=== PATIENT | male | born 1950 | race African-American/Black ===

== ENCOUNTER 2018-08-09 12:31 | Inpatient (IN) | payer OTHER ==
[~2018-08-09] VITALS: Ht 177.8 cm; Wt 77.1 kg
--- NOTE | ~2018-08-09 | EEG ---
[facility] [place] [address] ELECTROENCEPHALOGRAM Name: ABIEL ACOSTA Room #: 462-P ADM IN M.R.#: [id number] Admission: 08/09/18 Attend Phys: Clint Girard MD Discharge: Date of : 48 Report #: [id number] THIS REPORT FOR: //name// CC: Clint MARTIN unknown DATE OF SERVICE: 08/10/2018 This patient is being evaluated for seizure disorder. EEG was done by placing the electrodes by standard 10-20 system of electrode placement. Both referential and sequential montages were used for recording. Background activity in this patient's EEG is about 8-9 Hz and 30 microvolts. The patient became drowsy that is associated with bilateral slowing and vertex sharp waves. Photic stimulation was unremarkable. Throughout the record, no active epileptiform activity was noticed. IMPRESSION: This patient's EEG is moderately slow. There is a nonspecific finding, which can occur with drowsiness, dementia, effect of psychotropic medication. No active epileptiform activity was noticed during this record. Thank you very much for this referral. By: [id number] Edis Albarran MD /nt
--- NOTE | ~2018-08-09 | HC ---
[facility] [place] [address] CONSULTATION Name: ABIEL ACOSTA Room #: 462-P ADM IN M.R.#: [id number] Admission: 08/09/18 Attend Phys: Clint Girard MD Discharge: Date of : 48 Report #: [id number] THIS REPORT FOR: //name// CC: Clint Girard [facility] unknown DATE OF SERVICE: 08/10/2018 HISTORY OF PRESENT ILLNESS: This is a 68-year-old male patient whom I tried to see last night and again this morning. The patient is very uncooperative. He does not answer my questions and just asked me a question instead. I tried to explain to him last night and this morning that it is very important that he cooperates with me, so that I can give him some guidance about his treatment. He gives a history that he has a seizure disorder. His seizure disorder started sometime early last year. He said he had a seizure and they called ambulance. I asked him did he to go to the hospital and instead of answering he told me what do you think I did. After lot of talking to him, it looks like he was admitted to [facility]. He will not give me any history in that regard further. He said he was put on medication. He will not give answers to what testing they have. He said he ran out of his medication about 2 days ago. He does not know what medication he was on. In the hospital, he is on Keppra. He has not had any further seizure, and he has been drowsy. He was smoking marijuana when he had these seizures as I understand from the history, but he will not give me any history in that regard. He will not tell me if he drinks alcohol and how much alcohol he drinks. REVIEW OF SYSTEMS: I carried out the 14-point review of systems. He is very uncooperative. The history he provides me is different than the history he provided to Emergency Room, and in fact, most of the time, he kept arguing rather than giving straight answers. I attempted 14-point review of systems, but he did not provide good answers to any of those. PAST MEDICAL HISTORY: Positive for seizure, but further history is not clear. FAMILY HISTORY: He will not give. SOCIAL HISTORY: The best I can tell from him, he does not drink alcohol on a regular basis. PHYSICAL EXAMINATION: Very limited. When I tried to do the visual field examination, instead of counting the fingers, he will say there are 8 fingers. He just did not want to cooperate. He does not like the IV. The only thing I can say is that he moves all 4 extremities. He did let me listen to his heart and lungs, and they look unremarkable. [facility] [address] [place] [address] CONSULTATION Name: ABIEL ACOSTA Room #: 462-P ADM IN M.R.#: [id number] Admission: 08/09/18 Attend Phys: Clint Girard MD Discharge: Date of : 48 Report #: [id number] IMPRESSION: Very difficult to form in this patient because he is so uncooperative. I suspect he has a seizure disorder. RECOMMENDATIONS: Presently, he is on Keppra that is the relatively high dose of Keppra, but if he was on that, we can continue that. His creatinine is 4.1 that needs to be addressed, and his dose may have to be readjusted. I will get an EEG done in this patient and discuss the patient with Dr. Girard. By: [id number] [id number] Edis Albarran MD /nt
[2018-08-09 12:33] VITALS: BP 176/85
[2018-08-09 13:06] LABS: ABSOLUTE NEUTROPHILS 3.4 thou/uL (1.4-8.2); BASOPHILS 1.1 % (0.0-2.0); EOSINOPHILS 2.2 % (0.0-3.0); HEMATOCRIT 35.4 % (42.0-52.0); HEMOGLOBIN 12.3 gm/dL (14.0-18.0); LYMPHOCYTES 13.7 % (24.0-44.0); MCH 32.3 pg (26.0-34.0); MCHC 34.6 g/dL (28.0-37.0); MCV 93.2 fL (80.0-100.0); MONOCYTES 2.7 % (1.0-8.0); PLATELET COUNT 166 thou/uL (150-400); POLYS 80.3 % (36.0-66.0); RDW 13.5 % (10.5-14.5); WBC 4.2 thou/uL (4.0-11.0)
[2018-08-09 13:16] LABS: ANION GAP 14 mmol/L (7-16); BUN 40 mg/dL (7-18); CALCIUM 8.7 mg/dL (8.5-10.1); CHLORIDE 105 mmol/L (98-107); CO2 21 mmol/L (21-32); CREATININE 4.2 mg/dL (0.7-1.3); GLUCOSE 146 mg/dL (74-106); POTASSIUM 4.4 mmol/L (3.5-5.1); SODIUM 140 mmol/L (136-145)
[2018-08-09 13:18] LABS: URINE BILIRUBIN NEGATIVE (Negative); URINE BLOOD 1+ (Negative); URINE CLARITY CLEAR; URINE COLOR YELLOW; URINE GLUCOSE-RANDOM* TRACE (Negative); URINE KETONES NEGATIVE (Negative); URINE LEUKOCYTES-REFLEX NEGATIVE (Negative); URINE NITRITE-REFLEX NEGATIVE (Negative); URINE PROTEIN (DIPSTICK) 2+ (Negative); URINE UROBILINOGEN 0.2 E.U./dl (0.2-1.0)
[2018-08-09 13:23] LABS: AMP/METHAMP Negative (Negative); BARBITURATES Negative (Negative); BENZODIAZEPINES Negative (Negative); COCAINE Negative (Negative); METHADONE Negative (Negative); OPIATES Negative (Negative); PCP Negative (Negative)
[2018-08-09 13:25] LABS: ALBUMIN 3.9 g/dL (3.4-5.0); SALICYLATE 6.2 mg/dL (2.8-20.0); SGOT 20 U/L (15-37); SGPT 22 U/L (30-65); TOTAL BILIRUBIN 0.5 mg/dL (<0.1-1.0); TOTAL PROTEIN 7.8 g/dL (6.4-8.2); TROPONIN-I <0.06 ng/mL (<0.06)
[2018-08-09 13:30] LABS: BACTERIA-REFLEX None Seen /HPF (None Seen); CRYSTALS None Seen /LPF (None Seen); HYALINE CASTS 0-3 Few /LPF (None Seen); SQUAMOUS >10 Many /LPF (0-3); URINE RBC 3-10 Few /HPF (0-2); URINE WBC-REFLEX 0-5 Rare /HPF (0-5)
[2018-08-09] MEDS ORDERED: HYDRALAZINE 2525 MG PO (15:13)
[2018-08-09 15:33] VITALS: BP 165/88
[2018-08-09 15:54] VITALS: BP 165/88
[2018-08-09 16:15] VITALS: BP 170/88
--- NOTE | 2018-08-09 16:33 | EKG ---
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1950 Requested By: Christine Evans Order Number: [id number] MD: Marcos Machado Measurements Intervals Jack Rate: 98 P: 72 TN: 143 QRS: 84 QRSD: 88 T: 60 QT: 352 QTc: 450 Interpretive Statements Sinus rhythm Probable left atrial enlargement Borderline right axis deviation Probable left ventricular hypertrophy Baseline wander in lead(s) V5 No previous ECG available for comparison Electronically Signed On 08-09-2018 16:33:41 ROLLER VARNISHER by Marcos Machado [email or web address] <ELECTRONICALLY SIGNED> By: Marcos Machado MD 08/09/18 1633 1241 124 Marcos Machado MD /JOANNA
--- NOTE | 2018-08-09 16:46 | NUR ---
Received pt from the ER, pt is very lethargic and can be combative. Hygiene is very poor and would not respoond to most questions. IV fluids started.
[2018-08-09 23:09] VITALS: BP 169/82
[2018-08-10 04:07] VITALS: BP 155/79
[2018-08-10 06:10] LABS: CALCIUM 8.2 mg/dL (8.5-10.1); CREATININE 4.1 mg/dL (0.7-1.3); POTASSIUM 4.4 mmol/L (3.5-5.1)
--- NOTE | 2018-08-10 06:28 | NUR ---
SLEPT THRU EVENING. WOKE UP AT 0330. GAVE PATIENT SHOWER DUE BEING/FEELING SWEATY. ASSIST X 1 TO BATHROOM. STEADY GAIT WITH ONE EPISODE OF WEAKNESS/STUMBLING TO THE LEFT. HAS BEEN COMPLIANT WITH SAFETY INSTRUCTIONS. BED ALARM ON. ROOM NEAR NURSES STATION. DENIES PAIN.
[2018-08-10 08:20] VITALS: BP 147/72
--- NOTE | 2018-08-10 13:14 | NUR ---
cm visited with pt at bedside, pt is a & 3, pleasant and able to make his needs. intro cm, dcp, home health, post acute. pt reported " live alone, 10 stairs. 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 go to [facility] clinic for neuro and kidneys. friends and family can transport me home. get medication at [facility] [address]. have not taken medication on 3 days, been out, maybe that is what caused this. i am feeling better and ready to leave."/rosalino. will cont following as needed for dc needs. no anticipated needs. dcp home
[2018-08-10 19:34] VITALS: BP 138/70
--- NOTE | 2018-08-10 20:08 | NUR ---
Pt bp was elevated, new order for bp medication given, bp back with in baseline. Pt is less obnoxious today, and is able to follow simple instruction but would refuse care at times. No verbilization of any issues or concerns.
[2018-08-11 04:16] VITALS: BP 148/71
--- NOTE | 2018-08-11 06:22 | NUR ---
Assumed care at 1845. Pt resting in bed. No issues with BP. No episode of seizure. Pt has been some what cooperative with treatment. No identified needs at the moment. Call light within reach. Will continue to monitor.
[2018-08-11 08:00] VITALS: BP 158/81
[2018-08-11 14:05] VITALS: BP 167/65
[2018-08-11 19:25] VITALS: BP 183/92
[2018-08-12] VITALS (8 sets, daily range): BP systolic 154–179; BP diastolic 78–101
--- NOTE | 2018-08-12 04:04 | NUR ---
Pt. rested quietly at intervals during the night when checked on during frequent rounds. No seizure activity noted. Assisted to the toilet with stand by. Bed alarm is on.
[2018-08-12 05:26] LABS: HEMATOCRIT 26.9 % (42.0-52.0); MCH 32.5 pg (26.0-34.0); MCHC 34.8 g/dL (28.0-37.0); MCV 93.5 fL (80.0-100.0); RBC 2.88 mil/uL (4.50-6.00); RDW 13.5 % (10.5-14.5); WBC 3.9 thou/uL (4.0-11.0)
[2018-08-12 05:44] LABS: CALCIUM 8.1 mg/dL (8.5-10.1); CREATININE 3.3 mg/dL (0.7-1.3); POTASSIUM 5.1 mmol/L (3.5-5.1)
[2018-08-12 05:45] LABS: HEMOGLOBIN 9.4 gm/dL (14.0-18.0)
--- NOTE | 2018-08-12 16:39 | NUR ---
PATIENT TRANSFERRED FROM [facility], REPORT RECEIVED FROM ROM/RN. PATIENT UP WITH SBA WITH USE OF CANE. PATIENT HAS RIGHT CHEST POC IN PLACE, WITH NS AT 100CC/HR. BLOOD SUGAR MONITORING ORDERED, LOW DOSE S/S GIVEN PER BLOOD SUGAR. ROOM AIR, CPAP AT NIGHT. ALERT AND ORIENTED X 4. WILL CONTINUE TO MONITOR.
--- NOTE | 2018-08-12 17:05 | NUR ---
PATIENT TRANSFERRED FROM [facility], REPORT FROM EZIO/AFSHAN. PATIENT ALERT AND ORIENTED X 4. UP WITH SBA. PATIENT DENIES PAIN UPON ARRIVAL TO THE UNIT. SEIZURE PRECAUTIONS IMPLEMENTED. PATIENT HAS LEFT AC IV IN PLACE WITH NS AT 125CC/HR. B/P 167/79, HYDRALAZINE 50 MG PO GIVEN. WILL CONTINUE TO MONITOR.
--- NOTE | 2018-08-13 06:40 | NUR ---
PATIENT ALERT AND ORIENTED X4 WITH FLAT AFFECT AND NOTHING MUCH TO SAY WHEN ASKED QUESTIONS. NEW IV STARTED DUE TO INFILTRATION. IVF INFUSING W/O COMPLICATION. NO SEIZURE DURING THE NIGHT - FOLLOWING PROTOCOL. BP INCREASED DURING THE NIGHT, MEDICATED PER PRN ORDER. BP 154/78 DOWN FROM 178/86. WILL MONITOR. PATIENT ANXIOUS TO GO HOME.
[2018-08-13 06:42] LABS: HEMATOCRIT 27.4 % (42.0-52.0); HEMOGLOBIN 9.2 gm/dL (14.0-18.0); MCH 31.7 pg (26.0-34.0); MCHC 33.7 g/dL (28.0-37.0); MCV 93.9 fL (80.0-100.0); RBC 2.91 mil/uL (4.50-6.00); RDW 13.4 % (10.5-14.5); WBC 3.3 thou/uL (4.0-11.0)
[2018-08-13 06:56] LABS: ALBUMIN 2.9 g/dL (3.4-5.0); CALCIUM 8.3 mg/dL (8.5-10.1); CREATININE 3.1 mg/dL (0.7-1.3); POTASSIUM 5.2 mmol/L (3.5-5.1); TOTAL BILIRUBIN 0.3 mg/dL (<0.1-1.0)
[2018-08-13 10:01] VITALS: BP 169/78
[2018-08-13] MEDS ORDERED: AMLODIPINE BESY10 MG PO (10:21)
--- NOTE | 2018-08-13 10:43 | NUR ---
ASSUMED CARE AT 0700, SHIFT ASSESSMENT DONE, MEDS GIVEN, BP ELEVATED, MEDICATED PER eMAR. DENIES ANY NAUSEA, VOMITING, PAIN. DISCHARGE ORDERS RECEIVED. WILL CONTINUE TO ASSIST WITH ADLs AND ASSIST WITH DC PLANNING NEEDED.
[2018-08-13 10:56] VITALS: BP 169/78
--- NOTE | 2018-08-13 16:06 | NUR ---
DISCHARGE ORDERS RECEIVED, PERIPHERAL IV WAS TAKEN OUT. DISCHARGE PAPER WORKS GIVEN, SCRIPTS GIVEN. PATIENT WAS TRANSPORTED OUT WITH NURSING STAFF.
== END 2018-08-13 16:07 | disposition home or self-care (01) | DRG 682 ==
LOC: ER 12:31 → EROBS 14:42 → 4W 14:42 → SICU 08-12 15:14
PROVIDERS: Hospitalist; Internal Medicine; Physician Assistant; ADMIT Hospitalist
DX: N17.9 Acute kidney failure, unspecified (principal); G93.41 Metabolic encephalopathy; N18.5 Chronic kidney disease, stage 5; F12.10 Cannabis abuse, uncomplicated; G40.909 Epilepsy, unspecified, not intractable, without status epilepticus; I12.9 Hypertensive chronic kidney disease with stage 1 through stage 4 chronic kidney disease, or unspecified chronic kidney disease; F10.10 Alcohol abuse, uncomplicated; D64.9 Anemia, unspecified; D69.6 Thrombocytopenia, unspecified; Z71.89 Other specified counseling; Z79.899 Other long term (current) drug therapy; Z91.19 Patient's noncompliance with other medical treatment and regimen
CPT/HCPCS: 10045; 15002

== ENCOUNTER 2018-08-15 17:19 | Inpatient (IN) | payer OTHER ==
[~2018-08-15] VITALS: Ht 175.3 cm; Wt 64.8 kg
--- NOTE | ~2018-08-15 | HC ---
[facility] [place] [address] CONSULTATION Name: ABIEL ACOSTA Room #: 207-P ADM IN M.R.#: [id number] Admission: 08/15/18 Attend Phys: Buck Kent MD Discharge: Date of : 48 Report #: [id number] THIS REPORT FOR: //name// CC: FAM unknown Buck Kent DATE OF SERVICE: 08/17/2018 REASON FOR CONSULTATION: Acute kidney injury, chronic kidney disease. HISTORY OF PRESENT ILLNESS: A 68-year-old who is well known to me. He is known to have chronic kidney disease and is followed by [facility]. He is also known to have hypertension. He was admitted with what seems to be seizure last week. I confirmed with his pharmacy that the patient has not been picking up his blood pressure medication. He was supposed to be on metoprolol, Norvasc, hydralazine. He is also known to have seizure and was maintained on Keppra. He presented with symptoms suggestive of gastroenteritis including emesis. He denies any diarrhea. He was supposed to be seeing his user support analyst supervisor within the next few days. He was found to have a blood pressure of 228. He was admitted to further evaluate. I am being consulted to manage his acute kidney injury as his creatinine was elevated at 3.9 and it went down to 3.5 as of this morning. Noted is the fact that the patient's creatinine upon discharge was 3.1 from 08/13/2018. Renal ultrasound was done the last time and it showed thickened bladder wall with a postvoid volume of 119 due to what was described as chronic bladder outlet obstruction. He also had criteria of chronic kidney disease on the ultrasound. PAST MEDICAL HISTORY: 1. Seizure disorder. 2. Hypertension. 3. Chronic kidney disease. 4. Noncompliance. MEDICATIONS: 1. Keppra. 2. Hydralazine. 3. Norvasc. 4. Metoprolol. SOCIAL HISTORY: Admitted to marijuana usage. REVIEW OF SYSTEMS: GENERAL: No fever or chills. CARDIOVASCULAR: No chest pain or palpitation. PULMONARY: No cough or hemoptysis. GASTROINTESTINAL: Significant for nausea and vomiting. [facility] [address] [place] [address] CONSULTATION Name: ABIEL ACOSTA Room #: 207-P [facility] IN M.R.#: [id number] Admission: 08/15/18 Attend Phys: Buck Kent MD Discharge: Date of : 48 Report #: [id number] MUSCULOSKELETAL: No morning stiffness. GENITOURINARY: No frequency, no urgency. PHYSICAL EXAMINATION: GENERAL: Alert, oriented, in no apparent distress. VITAL SIGNS: Blood pressure 150/72. HEAD AND NECK: No jugular venous distention. CHEST: No crackles. CARDIOVASCULAR: No rub. ABDOMEN: Soft, nontender. LOWER EXTREMITIES: No edema. LABORATORY DATA: Laboratory values reviewed. Hemoglobin 12.4. Sodium 141, potassium 4.7, BUN is 33, creatinine is 3.5. IMAGING: Abdomen and pelvis CT negative other than bladder wall thickening. ASSESSMENT, IMPRESSION AND PLAN: 1. Chronic kidney disease. 2. Noncompliance. 3. Hypertension. Extensive workup had been done in the last admission. I confirmed with his pharmacy that he has not picked up his medications. He needs to be on an angiotensin converting enzyme inhibitor, a thiazide or loop diuretic plus the Norvasc and the beta monalisa. I see that his blood pressure now is much better now that he is taking his oral medications under supervision. He has an appointment with his user support analyst supervisor at [facility] and will need to follow up with them. By: 0831 [id number] Rae Hale MD /nt
[~2018-08-15 17:19] MED LIST: AMLODIPINE BESY10 MG PO; HYDRALAZINE 2525 MG PO
[2018-08-15 17:20] VITALS: BP 228/113
[2018-08-15 18:00] LABS: ABSOLUTE NEUTROPHILS 5.6 thou/uL (1.4-8.2); BASOPHILS 0.8 % (0.0-2.0); EOSINOPHILS 0.6 % (0.0-3.0); HEMATOCRIT 34.3 % (42.0-52.0); LYMPHOCYTES 7.5 % (24.0-44.0); MCH 32.6 pg (26.0-34.0); MCHC 35.1 g/dL (28.0-37.0); MCV 92.7 fL (80.0-100.0); MONOCYTES 1.4 % (1.0-8.0); PLATELET COUNT 154 thou/uL (150-400); POLYS 89.7 % (36.0-66.0); RBC 3.69 mil/uL (4.50-6.00); RDW 13.3 % (10.5-14.5); WBC 6.3 thou/uL (4.0-11.0)
[2018-08-15 18:11] LABS: ANION GAP 10 mmol/L (7-16); BUN 35 mg/dL (7-18); CALCIUM 9.2 mg/dL (8.5-10.1); CHLORIDE 105 mmol/L (98-107); CO2 24 mmol/L (21-32); CREATININE 3.9 mg/dL (0.7-1.3); GLUCOSE 122 mg/dL (74-106); POTASSIUM 4.3 mmol/L (3.5-5.1); SODIUM 139 mmol/L (136-145)
[2018-08-15 18:16] LABS: URINE BILIRUBIN NEGATIVE (Negative); URINE BLOOD 1+ (Negative); URINE CLARITY CLEAR; URINE COLOR YELLOW; URINE GLUCOSE-RANDOM* NEGATIVE (Negative); URINE KETONES NEGATIVE (Negative); URINE LEUKOCYTES-REFLEX NEGATIVE (Negative); URINE NITRITE-REFLEX NEGATIVE (Negative); URINE PROTEIN (DIPSTICK) 2+ (Negative); URINE UROBILINOGEN 0.2 E.U./dl (0.2-1.0)
[2018-08-15 18:19] LABS: ALBUMIN 4.1 g/dL (3.4-5.0); LIPASE 267 U/L (73-393); SGOT 21 U/L (15-37); SGPT 25 U/L (30-65); TOTAL BILIRUBIN 0.5 mg/dL (<0.1-1.0); TOTAL PROTEIN 7.9 g/dL (6.4-8.2); TROPONIN-I <0.06 ng/mL (<0.06)
[2018-08-15 18:26] LABS: BACTERIA-REFLEX None Seen /HPF (None Seen); CASTS None Seen /LPF (None Seen); CRYSTALS None Seen /LPF (None Seen); SQUAMOUS None Seen /LPF (0-3); URINE RBC 3-10 Few /HPF (0-2); URINE WBC-REFLEX None Seen /HPF (0-5)
[2018-08-15 21:58] VITALS: BP 199/104
[2018-08-15] MEDS ORDERED: LAMICTAL 25 MG25 M1 PO (22:24)
[2018-08-15 22:40] VITALS: BP 196/94
--- NOTE | 2018-08-15 23:33 | NUR ---
PT BROUGHT TO ROOM 107 IN NAD. DNIES NEEDS. C/O ABDOMINAL PAIN WHEN ASKED. ADMISSION COMPLETED. PT NOT VERY FORTH COMING WITH INFORMATION AND GAVE MINIMAL ANSWERS. APPEARED IF HE JUST WANTED TO SLEEP.
[2018-08-16] VITALS (15 sets, daily range): BP systolic 106–208; BP diastolic 45–101
--- NOTE | 2018-08-16 00:58 | NUR ---
0045 - CONT. HTN. FLOAT DEMAND PLANNER ADVISED. WILL GIVE HYDRALAZINE PREVIOUSLY ORDERED. WILL CALL BACK IF BP IS NOT IMPROVED. PT STILL LETHARGIC/TIRED AND IN BONI, EASILY ROUSED AND DENIES S/S 2/2 HTN AT THIS TIME.
[2018-08-16 01:08] LABS: AMP/METHAMP Negative (Negative); BARBITURATES Negative (Negative); BENZODIAZEPINES Negative (Negative); COCAINE Negative (Negative); METHADONE Negative (Negative); OPIATES Negative (Negative); PCP Negative (Negative)
--- NOTE | 2018-08-16 01:54 | NUR ---
0100 - HYDRLAZINE GIVEN 013 - bp STILL ELEVATIED 190/90 FLOAT DIRECTOR MARKETING COMMUNICATIONS TEXTED. 199 - TEXTED AGAIN
[2018-08-16 04:23] LABS: CALCIUM 9.3 mg/dL (8.5-10.1); CREATININE 3.5 mg/dL (0.7-1.3); POTASSIUM 4.7 mmol/L (3.5-5.1)
[2018-08-16 04:47] LABS: HEMATOCRIT 35.8 % (42.0-52.0); HEMOGLOBIN 12.4 gm/dL (14.0-18.0); MCH 32.2 pg (26.0-34.0); MCHC 34.8 g/dL (28.0-37.0); MCV 92.5 fL (80.0-100.0); RBC 3.87 mil/uL (4.50-6.00); RDW 13.3 % (10.5-14.5); WBC 5.5 thou/uL (4.0-11.0)
--- NOTE | 2018-08-16 08:27 | EKG ---
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1950 Requested By: Christine Evans Order Number: [id number] MD: Michael Osuna Measurements Intervals [place] Rate: 103 P: 65 CO: 191 QRS: 81 QRSD: 81 T: 70 QT: 365 QTc: 478 Interpretive Statements Sinus tachycardia Poor R wave progression Borderline prolonged QT interval Compared to ECG 08/09/2018 12:41:40 No significant change was found Electronically Signed On 08-16-2018 8:26:49 [place] by Michael Osuna [email or web address] <ELECTRONICALLY SIGNED> By: Michael Osuna MD, [facility] 08/16/18 0826 40 40 Michael Osuna MD, [facility] /EPI
--- NOTE | 2018-08-16 08:30 | EKG ---
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 [employer]: : 1950 Requested By: Christine Evans Order Number: [id number] MD: Michael Osuna Measurements Intervals Morgan Rate: 114 P: 73 AL: 139 QRS: 87 QRSD: 82 T: 61 QT: 309 QTc: 426 Interpretive Statements Sinus tachycardia Poor R wave progression Compared to ECG 08/09/2018 12:41:40 No significant change was found Electronically Signed On 08-16-2018 8:30:28 ELECTRIC GAS APPLIANCES DEMONSTRATOR by Michael Osuna [email or web address] <ELECTRONICALLY SIGNED> By: Michael Osuna MD, [facility] 08/16/18829 03 03 Michael Osuna MD, FAC /EPI
--- NOTE | 2018-08-16 16:41 | NUR ---
ASSESSMENT CHARTED - MEDS PER SEP - PATIENT STARTED ON IMDUR - LISINOPRIL AND HYDRALAZINE DOSE INCREASE ORDERED - CARDENE DRIP BEING WEANED OFF - ORDERED. IV FLUIDS D/C'D. PATIENT VSS TAKEN Q 30 MIN AND DOCUMENTED Q 60 MIN SEE CSHEET IN CHART. BP HAS REMIANED IN LOW 140'S SYS WITH CARDENE WEAN. PT USING URINAL. WANTING ONLY APPLE JUICE TODAY - STATES HE IS NOT HAVING ANY ABDO PAIN. WILL ADVANCE DIET FOR DINNER. NO CO'S OF PAIN OR NAUSEA. HAS SLEPT ON AND OFF THROUGHOUT THE DAY. NO CO'S AT THE PRESENT TIME.
[2018-08-16 23:11] LABS: GLYCOHEMOGLOBIN (HGB A1C) 4.6 % (4.8-5.6)
[2018-08-17 00:10] VITALS: BP 130/78
[2018-08-17 04:37] VITALS: BP 127/65
--- NOTE | 2018-08-17 04:39 | NUR ---
ASSESSMENT DOCUMENTED.PT BEEN RESTING IN NO ACUTE DISTRESS.A/OX4.VSS.BLOOD PRESSURE BEEN STABLE.DENIES ABDOMINAL PAIN OR ANY OTHER DISCOMFORT.ON MONITOR HAS BEEN SR,WITH HR IN 70S-80S.POSSIBLE DISCHARGE TO HOME TODAY.WILL CONT TO MONITOR PER POC.
[2018-08-17 07:35] VITALS: BP 150/72
[2018-08-17] MEDS ORDERED: IMDUR 30 MG TAB30 M1 PO (09:42)
[2018-08-17] MEDS ORDERED: HYDRALAZINE 5050 MG PO (09:42)
[2018-08-17] MEDS ORDERED: LISINOPRIL5 MG PO (09:43)
[2018-08-17 09:53] VITALS: BP 150/72
--- NOTE | 2018-08-17 11:47 | NUR ---
ASSESSMENT DOCUMENTED. PT ALERT AND ORIENTED. DENIED HAVING PAIN OR DISCOMFORT. SR ON TELI. SEEN BY DR. SCHULTZ. ORDERS GIVEN TO DISCHARGE PT TO HOME. DISCHARGE INSTRUCTIONS GIVEN TO PT. PT VERBERLIZE UNDERSTANDING. PT LEFT THE FACILITY ACCOMPANIED BY THE FRIEND.
== END 2018-08-17 11:26 | disposition home or self-care (01) | DRG 682 ==
LOC: ER 17:19 → 2N 21:11 → EROBS 21:11 → 2N 22:25
PROVIDERS: Nurse Practitioner Family; Physician Assistant; ADMIT Internal Medicine
DX: N17.9 Acute kidney failure, unspecified (principal); E43 Unspecified severe protein-calorie malnutrition; I16.1 Hypertensive emergency; K29.70 Gastritis, unspecified, without bleeding; N18.5 Chronic kidney disease, stage 5; I16.0 Hypertensive urgency; F12.90 Cannabis use, unspecified, uncomplicated; I12.9 Hypertensive chronic kidney disease with stage 1 through stage 4 chronic kidney disease, or unspecified chronic kidney disease; R00.0 Tachycardia, unspecified; G40.909 Epilepsy, unspecified, not intractable, without status epilepticus; Z60.2 Problems related to living alone; D64.9 Anemia, unspecified; R31.9 Hematuria, unspecified; E11.22 Type 2 diabetes mellitus with diabetic chronic kidney disease; E11.51 Type 2 diabetes mellitus with diabetic peripheral angiopathy without gangrene; Z91.19 Patient's noncompliance with other medical treatment and regimen; Z79.899 Other long term (current) drug therapy
CPT/HCPCS: 10081